=== PATIENT | male | born 1990 | race Caucasian/White ===

== ENCOUNTER 2020-09-05 10:18 | Emergency (ER) | payer OTHER, SELFPAY ==
--- NOTE | ~2020-09-05 | XR_ITS ---
EXAMINATION: XR chest 1V portable EXAM DATE: 09/05/2020 11:03 INDICATION: Cough and body aches for one week. TECHNIQUE: Frontal and lateral projections of the chest obtained and reviewed. There is no prior alberto dy for comparison. FINDINGS: The lungs are clear. There are no pleural effusions. The cardiomediastinal silhouette is within normal limits. There is no pneumothorax suspected. The bones and soft tissues are unremarkab le. IMPRESSION: No acute cardiopulmonary findings. Reviewed, dictated and finalized at location A. [facility]
--- NOTE | 2020-09-05 10:53 | ED.GENADULT ---
HPI - General Adult General Chief complaint: Unspecified Stated complaint: Body Aches,chills,leg pain Time Seen by Provider: 09/05/20 10:37 Source: patient Mode of arrival: ambulatory Limitations: no limitations History of Present Illness HPI narrative: Patient is a 30-year-old male who presents with upper respiratory symptoms patient has had cough chills body aches that have been going on for the last 2 weeks had originally been tested 12 days ago for Covid which was negative at an urgent care has never followed up since continues to have some body aches with congestion cough and a few loose stools denies vomiting has taken [id number] medication for his symptoms denies sick contacts or individuals with similar symptoms at home Related Data Allergies Allergy/AdvReac Type Severity Reaction Status Date / Time No Known Allergies Allergy Verified 09/05/20 11:25 Review of Systems Review of Systems: All systems reviewed & are unremarkable except as noted in HPI and below PMFSH Social History Social History Smoking status: Current every day smoker Gender identity (if verbalized by the patient): Male Exam Narrative: Exam Narrative: GENERAL: Well-appearing, well-nourished, and in no acute distress. HEAD: Normocephalic, atraumatic. EYES: PERRLA and EOMI. ENT: Nares clear, no rhinorrhea or epistaxis. Mucous membranes moist. NECK: Supple. No adenopathy or masses. CHEST: Clear to auscultation. No respiratory distress. No wheezes rales or rhonchi HEART: Regular rate and rhythm. No murmur heard. EXTREMITIES: Normal range of motion. No edema. SKIN: Warm, dry, no rash. NEURO: No focal deficits. Alert and oriented x3. Cranial nerves II through XII grossly intact PSYCH: Normal mood and affect. Course Course Emergency Course: Patient in the room in no distress hemodynamically stable will be discharged home with primary care follow-up patient tested for Covid advised to self quarantine notes that the on-call primary care is the only person that can get his results patient is afebrile nontoxic-appearing no distress no pneumonia seen on exam Vital Signs Vital signs: Vital Signs Temperature 97.0 F L 09/05/20 11:20 Pulse Rate 112 H 09/05/20 11:20 Respiratory Rate 18 09/05/20 11:20 Blood Pressure 132/69 09/05/20 11:20 Pulse Oximetry 97 09/05/20 11:20 Temperature 97.0 F L 09/05/20 11:20 Pulse Rate 112 H 09/05/20 11:20 Respiratory Rate 18 09/05/20 12:25 Blood Pressure 132/69 09/05/20 11:20 Pulse Oximetry 97 09/05/20 11:20 Medical Decision Making MDM Narrative Medical decision making narrative: Patient in the room aware of case findings treatment plan diagnosis and agrees to follow with primary care and is been given reasons to return will be treated symptomatically agrees with this plan Vital Signs Vital Signs: Vital Signs Temperature 97.0 F L 09/05/20 11:20 Pulse Rate 112 H 09/05/20 11:20 Respiratory Rate 18 09/05/20 11:20 Blood Pressure 132/69 09/05/20 11:20 Pulse Oximetry 97 09/05/20 11:20 Temperature 97.0 F L 09/05/20 11:20 Pulse Rate 112 H 09/05/20 11:20 Respiratory Rate 18 09/05/20 12:25 Blood Pressure 132/69 09/05/20 11:20 Pulse Oximetry 97 09/05/20 11:20 Lab Data Labs: Lab Results 09/05/20 09/05/20 Range/Units 12:19 12:19 Urine Color Yellow (Yellow) Urine Appearance Cloudy H (Clear) Urine pH 5.0 (5.0-9.0) Ur Specific [place] 1.030 (1.001-1.035) Urine Protein Negative (Negative) mg/dL Urine Glucose (UA) Negative (Negative) mg/dL Urine Ketones Negative (Negative) mg/dL Ur Blood (Man) Negative (Negative) Urine Nitrate Negative (Negative) Urine Bilirubin Negative (Negative) Urine Urobilinogen Negative (<2.0) mg/dL Leukocyte Esterase Rfl Negative (Negative) DIANA/UL Urine RBC 0-2 (0-2) /hpf Urine WBC 0-3 /hpf Hyaline Salvador
[2020-09-05 11:20] VITALS: BP 132/69; PULSE 112; RESP 18; TEMP 36.1; O2SAT 97
[2020-09-05 12:25] VITALS: RESP 18
[2020-09-05 12:31] LABS: Add Urine Microscopic? YES; Appearance Urine Cloudy (Clear); Bilirubin Urine Negative (Negative); Blood Urine Negative (Negative); Color Urine Yellow (Yellow); Glucose Urine UA Negative (Negative); Ketones Urine Negative (Negative); Leukocyte Esterase Ur Negative LEU/UL (Negative); Mucus Urine Heavy /lpf; Nitrate Urine Negative (Negative); Protein Urine Negative (Negative); RBC Urine 0-2 /hpf (0-2); Urobilinogen Urine Negative mg/dL (<2.0); WBC Urine 0-3 /hpf
[2020-09-05 13:20] VITALS: BP 128/70; PULSE 100; RESP 12; O2SAT 99
[2020-09-05 23:55] LABS: SARS-CoV-2 RNA PCR Negative
== END 2020-09-05 13:21 | disposition home or self-care (01) ==
PROVIDERS: Emergency Medicine Emergency Medical Services; Emergency Provider Emergency Medicine
DX: J06.9 Acute upper respiratory infection, unspecified (principal); F17.220 Nicotine dependence, chewing tobacco, uncomplicated; Z20.828 Contact with and (suspected) exposure to other viral communicable diseases
CPT/HCPCS: 71045; 81001; 87081; 87635; 87880; 99283; C9803; U0003